=== PATIENT | female | born 1970 | race Caucasian/White ===

== ENCOUNTER → 2017-11-08 | Outpatient (CLI) | payer MEDICARE | LOC: M RAD 08:37 | DX: Z12.31 Encounter for screening mammogram for malignant neoplasm of breast (principal) | CPT/HCPCS: 77067 ==

== ENCOUNTER → 2017-11-20 | Outpatient (REF) | payer MEDICARE | LOC: M LAB REF 17:29 | DX: Z12.4 Encounter for screening for malignant neoplasm of cervix (principal) | CPT/HCPCS: G0123 ==

== ENCOUNTER → 2017-11-27 | Outpatient (CLI) | payer MEDICARE | LOC: M RAD 09:33 | DX: N92.6 Irregular menstruation, unspecified (principal) | CPT/HCPCS: 76856 ==

== ENCOUNTER 2018-11-12 16:03 | Emergency (ER) | payer MEDICARE ==
[~2018-11-12] VITALS: Ht 175.3 cm; Wt 86.2 kg
[~2018-11-12 16:03] MED LIST: IBUP600T OR
[2018-11-12] MEDS ORDERED: diazePAM 5 MG TAB PO ONE (19:00)
[2018-11-12] MEDS ORDERED: methylPREDNISolone INJ 125 MG/2 ML VIAL (J2930) IV ONE (19:00)
[2018-11-12] MEDS ORDERED: MORPHINE 4 MG/ML 1ML VIAL/SYRINGE (J2270) IV ONE (21:15)
[2018-11-12] MEDS ORDERED: PRED20TA PO (22:00)
[2018-11-12] MEDS ORDERED: VALI5TAB PO (22:00)
[2018-11-12 22:11] VITALS: BP 106/55
== END 2018-11-12 22:13 | disposition home or self-care (01) ==
LOC: M ED 16:03
DX: M54.41 Lumbago with sciatica, right side (principal); Z87.442 Personal history of urinary calculi; Z72.0 Tobacco use; Z91.02 Food additives allergy status; Z91.018 Allergy to other foods
CPT/HCPCS: 81001; 96374; 96375; 99284; J2270; J2930

== ENCOUNTER → 2018-11-18 | Outpatient (CLI) | payer MEDICARE ==
[~2018-11-18] MED LIST changes: +PRED20TA PO; +VALI5TAB PO
--- NOTE | 2018-11-18 16:20 | REP ---
LUMBAR SPINE, FIVE VIEWS: HISTORY: Back pain. There is no acute fracture. The L3-4 through L5-S1 intervertebral discs are decreased in height consistent with disc degeneration. Osteophytes are present on a L1 through L5. There is narrowing of the L4-5 and L5-S1 facet joints. There are 5 mm of grade 1 spondylolisthesis of L3 on L4. There are 4 mm of retrolisthesis of L5 on S1. IMPRESSION: Degenerative change as described above. Electronically Signed by Robin Clark MD 11/18/2018 04:23 P
--- NOTE | 2018-11-18 16:34 | REP ---
AP pelvis one-view : Mineralization and joint spaces are normal. There are no calcifications or foreign bodies. There is no fracture or dislocation. Impression: Negative AP pelvis. Right hip two views: There is no fracture or dislocation. Mineralization and joint space are normal. There are no calcifications or foreign bodies. Impression: Negative right hip. Electronically Signed by Thomas Power MD 11/18/2018 04:26 P
== END ==
LOC: M RAD 15:46
PROVIDERS: ATTEND Family Medicine
DX: M54.5 Low back pain (principal)

== ENCOUNTER 2019-06-16 19:16 | Emergency (ER) | payer MEDICARE ==
[~2019-06-16] VITALS: Ht 175.3 cm; Wt 72.7 kg
[2019-06-16] MEDS ORDERED: diphenhydrAMINE INJ 50MG/ML VIAL (J1200) As Ordered ONE (19:23)
[2019-06-16] MEDS ORDERED: dexameTHASONE 20 MG/5 ML VIAL (J1100) As Ordered ONE (19:23)
[2019-06-16] MEDS ORDERED: EPINEPHrine INJ 1 MG/ML 1ML AMP IM STA (19:25)
[2019-06-16 19:45] VITALS: BP 99/50
[2019-06-16] MEDS ORDERED: diphenhydrAMINE INJ 50MG/ML VIAL (J1200) IV STA (19:48)
[2019-06-16] MEDS ORDERED: dexameTHASONE 20 MG/5 ML VIAL (J1100) IV ONE (20:00)
[2019-06-16] MEDS ORDERED: PRED20TA PO (20:25)
== END 2019-06-16 20:38 | disposition home or self-care (01) ==
LOC: M ED 19:16
DX: R21 Rash and other nonspecific skin eruption (principal); L29.9 Pruritus, unspecified; T78.00XA Anaphylactic reaction due to unspecified food, initial encounter; X58.XXXA Exposure to other specified factors, initial encounter; Y92.89 Other specified places as the place of occurrence of the external cause; G89.29 Other chronic pain; M54.5 Low back pain; J30.89 Other allergic rhinitis; Z91.018 Allergy to other foods; F17.210 Nicotine dependence, cigarettes, uncomplicated
CPT/HCPCS: 96372; 96374; 96375; 99291; J1100; J1200

== ENCOUNTER 2020-01-31 13:37 | Emergency (ER) | payer OTHER, MEDICARE ==
[~2020-01-31] VITALS: Ht 175.3 cm; Wt 77.3 kg
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
[2020-01-31] MEDS ORDERED: PERCOCET 5MG/325MG TAB PO ONE (14:30)
[2020-01-31] MEDS ORDERED: BOOSTRIX/ADACEL VACCINE (DIPHTH/PERTUSS/ACELL/TETANUS) 0.5ML SYR IM ONE (14:30)
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
[2020-01-31] MEDS ORDERED: NORC1TAB7 PO (15:22)
[2020-01-31 15:41] VITALS: BP 108/56
== END 2020-01-31 15:40 | disposition home or self-care (01) ==
LOC: EDBD 13:37 → M ED 13:37
DX: S70.01XA Contusion of right hip, initial encounter (principal); S70.311A Abrasion, right thigh, initial encounter; V49.59XA Passenger injured in collision with other motor vehicles in traffic accident, initial encounter; Y92.410 Unspecified street and highway as the place of occurrence of the external cause; F17.210 Nicotine dependence, cigarettes, uncomplicated

== ENCOUNTER → 2020-05-22 | Outpatient (CLI) | payer MEDICARE ==
[~2020-05-22] MED LIST changes: +NORC1TAB7 PO
--- NOTE | 2020-05-22 14:39 | REP ---
INDICATION: HAND PAIN COMPARISON: None. TECHNIQUE: AP, lateral, bilateral oblique views left hand. FINDINGS: The osseous structures and joint spaces are intact and normal. There is no evidence for acute fracture or dislocation. Surrounding soft tissues are unremarkable. No subcutaneous emphysema or radiodense foreign body. IMPRESSION: . No acute fracture or dislocation. <Electronically signed by Evert Krishnamurthy > 05/22/20 [id number]
== END ==
LOC: M WUC 14:01
PROVIDERS: ATTEND Nurse Practitioner Family
DX: M79.642 Pain in left hand (principal)

== ENCOUNTER 2020-09-10 10:59 | Emergency (ER) | payer MEDICARE ==
[~2020-09-10] VITALS: Ht 175.3 cm; Wt 72.7 kg
[2020-09-10] MEDS ORDERED: METH4PACK (11:20)
[2020-09-10] MEDS ORDERED: AZIT-12 (11:20)
--- OUTSIDE RECORDS SUMMARY | 2020-09-10 11:35 | CCD | Continuity of Care Document ---
Author Author [facility] Address [address] [place] [address] Phone Care Team Providers Care Cotton Classer Aide Name Role Phone GAYLE BARNHART PCP Allergies, Adverse Reactions, Alerts No allergy information available. Medications No medication information available. Problems No problem information available. Procedures Procedure Date Performed Status CHEST 1 VIEW July 19, 2020 active Relevant Diagnostic Tests and/or Laboratory Data Laboratory Results Test Date/Time Result Interpretation Reference Range Result Co mment Performing Site White Blood Count July 19, 2020 5:10pm 8.0 4.0-1 0.0 [facility] Main Lab, [address] [place] [address] Red Blood Count July 19, 2020 5:10pm 4.31 4.00-5. 50 [facility] Main Lab, [address] [place] [address] Hemoglobin July 19, 2020 5:10pm 14.5 12.0-16.0 [facility] Main Lab, [address] [facility] [address] Hematocrit July 19, 2020 5:10pm 41.7 36.0-48.8 [facility] Lab, [address] [place] [address] Mean Corpuscular Volume July 19, 2020 5:10pm 96.8 80-96 [facility] Lab, [address] [facility] [address] Mean Corpuscular Hemoglobin July 19, 2020 5:10pm 33.6 27.0-31.0 [facility] Main Lab, 4 [facility] [address] Mean Corpuscular Hgb Concent Diff July 19, 2020 5:10pm 34.8 32.0-36.0 [facility] Main Lab, [address] [facility] [address] Red Cell Distribution Width July 19, 2020 5:10pm 13.3 10.0-14.5 [facility] Main Lab, [address] [facility] [address] Platelet Count July 19, 2020 5:10pm 281 172-450 [facility] Main Lab, [address] [place] [address] Mean Platelet Volume July 19, 2020 5:10pm 9.1 9. 0-13.0 [facility] Main Lab, 4 [facility] [address] Granulocytes % (Auto) July 19, 2020 5:10pm 59.2 5 0-80.0 [facility] Main Lab, [address] [facility] [address] Immature Granulocytes % July 19, 2020 5:10pm 0.2 0.0-0.2 [facility] Main Lab, [address] [facility] [address] Lymphocytes % July 19, 2020 5:10pm 31.0 25.0-50.0 [facility] Main Lab, [address] [facility] [address] Monocytes % July 19, 2020 5:10pm 8.0 2.0-10.0 [facility] Main Lab, 4 [facility] [address] Eosinophils % July 19, 2020 5:10pm 1.2 0-5.0 [facility] Main Lab, 4 [facility] [address] Basophils % July 19, 2020 5:10pm 0.4 0.0-2.0 [facility] Main Lab, 4 [facility] [address] Granulocytes # July 19, 2020 5:10pm 4.7 2.0-8.00 [facility] Main Lab, 4 [facility] [address] Immature Granulocytes # July 19, 2020 5:10pm 0.0 0.0-0.2 [facility] Main Lab, 4 [facility] [address] Lymphocytes # July 19, 2020 5:10pm 2.5 1.0-5.0 [facility] Main Lab, 4 [facility] [address] Monocytes # July 19, 2020 5:10pm 0.6 0.10-1.20 [facility] Main Lab, [address] [facility] [address] Eosinophils # July 19, 2020 5:10pm 0.1 0.0-0.5 [facility] Main Lab, 4 [facility] [address] Basophils # July 19, 2020 5:10pm 0.0 0.0-0.2 [facility] Main Lab, 4 [facility] [address] Prothrombin Time July 19, 2020 5:10pm 9.6 9.1-11 .6 [facility] Main Lab, [address] [facility] [address]226 INR International Normalized Ratio July 19, 2020 5:10pm 0.92 0.87-1.06 [facility] Main Lab, 4 [facility] [address]233 Partial Thromboplastin Time - Margo July 19, 2020 5:10pm 24.0 21.2-27.3 [facility] Main Lab, 4 [facility] [address] Glucose Level July 19, 2020 5:10pm 95 74-106 [facility] Main Lab, 4 [facility] [address] Blood Urea Nitrogen July 19, 2020 5:10pm 9 7-1 8 [facility] Main Lab, 4 [facility] [address]652 Creatinine July 19, 2020 5:10pm 0.8 0.6-1.0 [facility] Main Lab, [address] [facility] [address] Sodium Level July 19, 2020 5:10pm 138 136-145 [facility] Main Lab, 4 [facility] [address] Potassium Level July 19, 2020 5:10pm 4.2 3.5-5.1 [facility] Main Lab, 4 [facility] [address] Chloride Level July 19, 2020 5:10pm 100 98-107 [facility] Main Lab, [address] [facility] [address] Carbon Dioxide Level July 19, 2020 5:10pm 31 21 -32 [facility] Main Lab, [address] [facility] [address] Calcium Level July 19, 2020 5:10pm 9.5 8.5-10.1 [facility] Main Lab, [address] [facility] [address] Anion Gap July 19, 2020 5:10pm 7.0 5-12 [facility] Main Lab, 4 [facility] [address] Estimated GFR (MDRD) July 19, 2020 5:10pm 76 GFR IS CALCULATED IN mL/min/1.73m2 NORMAL FUNCTION: >90MILDLY DECREASED: 60-89MILDY TO MODERATELY DECREASED: 45-59 MODERATELY TO SEVERELY DECREASED: 30-44SEVERELY DECREASED: 15-29RENAL FAILURE: <15 [facility] Main Lab, [address] [facility] [address] Aspartate Amino Transf (AST/SGOT) July 19, 2020 5:10pm 15 15-37 [facility] Main Lab, [address] [facility] [address] Alanine Aminotransferase (ALT/SGPT) July 19, 2020 5:10pm 17 12-78 [facility] Main Lab, 4 [facility] [address] Alkaline Phosphatase July 19, 2020 5:10pm 81 46 -116 [facility] Main Lab, 4 [facility] [address] Total Bilirubin July 19, 2020 5:10pm 0.3 0.2-1.0 [facility] Main Lab, 4 [facility] [address] Total Protein July 19, 2020 5:10pm 7.2 6.4-8.2 [facility] Main Lab, 4 [facility] 289[address] Albumin July 19, 2020 5:10pm 3.7 3.4-5.0 [facility] Main Lab, 4 [facility] [address] Lipase July 19, 2020 5:10pm 129 73-393 [facility] Main Lab, 4 [facility] [address]957 Troponin I July 19, 2020 8:09pm < 0.017 0.0-0.056 [facility] Main Lab, [address] [facility] [address] Thyroid Stimulating Hormone (TSH) July 19, 2020 5:10pm 4.51 0.36-3.74 [facility] Main Lab, 4 [facility] [address]367 Magnesium Level July 19, 2020 5:10pm 1.9 1.8-2.4 [facility] Main Lab, [address] [facility] [address] Free Thyroxine July 19, 2020 5:10pm 0.95 0.76-[address] [place] [address] Main Lab, [address] [place] [address] Health Concerns No known health concerns documented Chief Complaint and Reason for Visit Reason for Visit CHEST PAIN Encounters Encounter Location(s) Arrival/Admit Date Discharge/Depart Date Provider(s) Departed Emergency [facility], [facility] July 19, 2020 4:59p m July 19, 2020 8:48pm BRITANY MERRILL @ Assessments No Assessments Information Available Functional Status No Functional Status information available Goals No Goals Information Available Immunizations No Immunization Information Available Mental Status No Mental Status Information Available Medical Equipment No Medical Equipment Information available Insurance Providers Guarantor TARAS NOVEMBER [place] Address [address] [address] Contact Info. Home Phone: Payer Policy Id Coverage Id Subscriber's Name Subscriber Id Effect heidy Date Expiration Date MEDICARE - [place] [id number] TARAS November [employer] [id number] TARAS NovemberMay 06, 2014 Social History Assigned Sex Female Vital Signs No vital signs result information available.
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
--- OUTSIDE RECORDS SUMMARY | 2020-09-10 11:36 | CCD ---
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 AgICAgICAgICAgICAgICAgICAgICAgICAgICAgICAgICAgICAgICAgICAgICAgICAgICAgICAgICAgIC AgICAgICAgICAgICAgICAgICAgICAgICAgICAgICAg CJ6QKUCvVVMrTUGqWZMlJXWlBRXuTKPsLCVqMKPoDVFnCLQxDGToKKWuSBPuSZWrHIGdKJFyIZSdEUWy HUQtSSJqACVuLVXxUQQvQMPfTFUlZKFhMNQrQJMnAUEqWAPnXRKjZNUsJL4YTYSlQODiCDGsJBMrEVXb ICAgICAgICAgICAgICAgICAgICAgICAgICAgICAgIC FaYOCxEWMbADLgYMRxWSOlCDWiUWXuVEEgDPXoXISgLPVvVLKgPBGrPORiRDWcBYAdZGUuDV9EWUUzQC AgICAgICAgICAgICAgICAgICAgICAgICAgICAgICAgICAgICAgICAgICAgICAgICAgICAgICAgICAgIC AgICAgICAgICAgICAgICAgICAgICAgICAgICAgICAg UPUuPG9NSYZxHWNwHYNtVKYsUULbBIGiGYYxOFHwDKFeFEWhYNUtBSWzBFWkVQQbUNPsUJFkKBOwRKLh BULcMQUhJXFhDFVeFPMwCOBeWEQpVNDrQVPaRNOfJTRwEWTgCBUfALWxBLLzCE2XLXIyJYXdBESpMIUg ICAgICAgICAgICAgICAgICAgICAgICAgICAgICAgIC EyMPRcSYVgTQFbQMHiHYLmSQVqXRPcBPRcLKWuCOWhQUOfMAGyRHHkJUDdUCWnMWHsNZJwGQLhNG4LRT AgICAgICAgICAgICAgICAgICAgICAgICAgICAgICAgICAgICAgICAgICAgICAgICAgICAgICAgICAgIC AgICAgICAgICAgICAgICAgICAgICAgICAgICAgICAg AIFhJDVdQX7BBA94oDPkr9H2OUNvTM3wwwt/Lf4VMZmssfBerUZxCP0YTwKiBY1zya5OBeVrCS9zhn8Q DNyNIjYcU4H0fRUuTDZbGNUOCcTpZ10sCSnvKt37DRkpGVDeBjTgQPw3Gv5APgGlG4arZMArYjN7HJWd ElI0BCYuUqHuWUxkKJ4Kd7MdgLQbYHr+Jo3DRN5so6 HkARmpMVIlBK9kio9UVWoHNgGhW0XsifQ6XYS6KXGlIt4RUXQbOYClqDVhFFPeCIOLPxKyH7VatM86TU ENCj4+TYtuofGvOznLBtC8MMKwz4GcGBl0ID1VZOCaHKm8wANxMLDuK6Pme7EjXe26WRXhZvqtAUC4fA pctrIJFFG7qs9heMIpGMMJYJJ2LEgnIv9aMXKmDETj ZzU4KCGZKT4PJPLcRAJouHQyNKRvEBTEHT8HKEliXDF5OPHzxwDsmTFmSDpxDY5ZMRMarnJkLrHfTFVD DQo+Sn3EDH6fn7VyUNwiOoAnHH8htd4WDSdIThAwT2R9tSKkJ1P3GGmaHk2IOYVvWWUqKyWpGBNDTIya IP3FJT6kclX4MB8GoGQaYJYmUUPmhSTtPMi1K57pqQ EnUMymLK7RDQZ+Geovanny+Qe3LSTHbCEGpGADuLvHsWXYYOwXeR8KhD7FMj0EfE3YwEF69cZhejmRiXLntYG 3DUK9lJAMdGFKXQM2CaOQhjQ9cyvNyHITgJUBUIbYxY65ljDSuPXRzHXWaRPIdLr4IVIHlQ6BtvvFrnB vqeiHcXSYaBPWTFK2DCKzmpqSgaHZqwCqfQC10rMvy OM4PYj5BNsIuFO1ndi9TbXUhIa4ULYUiSe0HXMGqNQZfOUVrFTN4OXSjOgHoBSwuEIQwZCAkWVW1YWVc NHCmLM5GHaMyQHZuNcD1DTdoZVNuVNDidl0JCVUiPLBsYbW2RvBmNLPmDVPiPOayEOOpQEFpJVP9DJIy RBGuNV8ISiNoCMRqRUR2FsKvCCUuDKYnsv5GCYQlFP ZmMWH4ZsKdSMAkGNUoKHqlUTPcGFD6JQB9RJSwHCAhYW4OWwAxCIAgSJHpUsFdRTMzWBNolp2ZNSOeFV YjQyMaVMYsTARfWSXtMWoxAJKcCPA5ZXE0DJFbRHJxGZ8GBmEpOQKtGWD7BBYyEKEdDDSkxb4AYUHyAF HvImU7EARgONZmQWPaEEgwSDAqRQF5YmP7MURlPFSu PP0XLfRqLQJpOTu6WXXmIAZcSVVnna8IRTOgALVeMER1IJIbOXPnDLLvXQklOHXvZFD5CvVlNOLhGVKw QI6VHnMsRVFkWFk1KHgmVIMdDQUhlv6MBPVeOWXuYBH0IUBpBKHhAIJvPZxgZTZjBXKpDcE9KQAuUZQd YW9KGsJuKGSmOyLkACqhLQEaVKFdwh3KNDWuAXPrVX F1SdVjNDCoGQSwXXheGGBnIWLqLeO2QYNmVMNiBQ3PZhVwXSNhPfYqWVFrEUPySKVawa5HFANbTZZcCc Y0ApDdLFKzKLVmBNnlGEQoSAIxPUO8SXIuNCOzKY2BNqMrDMBzYnT8JWccTMFyRRQogw5QyCBbtRorce 2ZITaISt9GrLmtRPF9JFqbDg4amEKbHrBmPZUUBl0S cwTyHQVlGOXLOGcbHMHfTDKjGCLaZWHnHNRqEgouMLuqISCaDoBaD3TtLlOlJtO2JlX1YsU1TjGdUdOd EWQ4TCT9TYY9R2ZgFuNrE6YwRESaIGy+QB2qLXj+Wz6Tz7HzoyK7dqKfVRzwMyn3Fr1LSLELM2LFGc== ID Date Data Source [id number] 01/17/2020 12:00:00 AM EDT [facility] Name Value Range Interpretation Code Description Data Minda rce(s) Supporting Document(s) SARS coronavirus 2 RNA [Presence] in Res piratory specimen by DANIEL with probe detection [facility] This lab was ordered by Courtney Jorge and reported by [place] [employer]. Procedure Social History Code Duration Value Status Description Data Source(s ) Alcohol intake 06/25/2020 12:00:00 AM EST Current drinker of al cohol (finding) completed Current drinker of alcohol (finding) [facility] Tobacco use and exposure 06/25/2020 12:00:00 AM EST Never used co mpleted Never used [facility] Cigarettes smoked current (pack per day) - Reported 06/25/20 12:00:00 AM EST UNK completed [facility] Smoking 06/25/2020 12:00:00 AM EST Current every day smoker co mpleted Current every day smoker [facility] Alcohol intake 05/31/2020 12:00:00 AM EDT Current drinker of al cohol (finding) completed Current drinker of alcohol (finding) [facility] Alcohol intake 05/13/2020 12:00:00 AM EDT Current drinker of al cohol (finding) completed Current drinker of alcohol (finding) [facility] Alcohol intake 03/18/2020 12:00:00 AM EDT Current drinker of al cohol (finding) completed Current drinker of alcohol (finding) [facility] Alcohol intake 02/26/2020 12:00:00 AM EDT Current drinker of al cohol (finding) completed Current drinker of alcohol (finding) [facility] Cigarettes smoked current (pack per day) - Reported 02/26/20 12:00:00 AM EDT UNK completed [facility] Smoking 02/26/2020 12:00:00 AM EDT Current every day smoker co mpleted Current every day smoker [facility] Alcohol intake 02/05/2020 12:00:00 AM EDT Current drinker of al cohol (finding) completed Current drinker of alcohol (finding) [facility] Cigarettes smoked current (pack per day) - Reported 02/05/20 12:00:00 AM EDT UNK completed [facility] Smoking 02/05/2020 12:00:00 AM EDT Current every day smoker co mpleted Current every day smoker [facility] Vital Signs ID Date Data Source UNK Name Value Range Interpretation Code Description Data Source(s) Body mass index (BMI) [Ratio] 27.5 kg/m2 27.5 k g/m2 [facility] ([facility]) Body weight 186.00 [lb_av] 186.00 [lb_av] [facility] T ([facility]) Body height 69 [in_i] 69 [in_i] [facility] ([facility]) 5'9" Body temperature 97.5 [degF] 97.5 [degF] [facility] ([facility]) Body mass index (BMI) [Ratio] 25.8 kg/m2 25.8 k g/m2 [facility] ([facility]) Body height 69 [in_i] 69 [in_i] [facility] ([facility]) 5'9" Body weight 175.00 [lb_av] 175.00 [lb_av] [facility] T ([facility]) Body temperature 98.6 [degF] 98.6 [degF] [facility] ([facility]) Oxygen saturation in Arterial blood by Pulse oximetry 98 % 98 % [facility] ([facility]) Respiratory rate 15 /min 15 /min [facility] ( [facility]) Heart rate 88 /min 88 /min [facility] ([facility], [facility]) Diastolic blood pressure 72 mm[Hg] 72 mm[Hg] [facility] ([facility], [facility]) Systolic blood pressure 115 mm[Hg] 115 mm[Hg] [facility] Body mass index (BMI) [Ratio] 25.1 kg/m2 25.1 k g/m2 [facility] ([facility], [facility]) Body height 69 [in_i] 69 [in_i] [facility] ([facility], [facility]) 5'9" Body weight 170.00 [lb_av] 170.00 [lb_av] [facility] T ([facility], [facility]) Body temperature 98.2 [degF] 98.2 [degF] [facility] ([facility], [facility]) Oxygen saturation in Arterial blood by Pulse oximetry 98 % 98 % [facility] Respiratory rate 18 /min 18 /min [facility] ( [facility], [facility]) Heart rate 69 /min 69 /min [facility]) Diastolic blood pressure 74 mm[Hg] 74 mm[Hg] [facility] ([facility], [facility]) Systolic blood pressure 117 mm[Hg] 117 mm[Hg] [facility] ID Date Data Source [id number] 08/27/2020 03:51:20 PM [facility] Value Range Interpretation Code Description Data Source(s) WEIGHT RECORDED 190.4 lb 190.4 lb [facility] Body height Measured 70 in 70 in [facility] ID Date Data Source [id number] 06/02/2020 01:23:53 PM [facility] Value Range Interpretation Code Description Data Source(s) WEIGHT RECORDED 188 lb 188 lb [facility] Body height Measured 69 in 69 in [facility] ID Date Data Source [id number] 06/04/2020 10:41:07 AM [facility] Value Range Interpretation Code Description Data Source(s) WEIGHT RECORDED 175 lb 175 lb [facility] Body height Measured 69 in 69 in [facility] ID Date Data Source [id number] 02/05/2020 12:44:08 PM [facility] Name Value Range Interpretation Code Description Data Source(s) WEIGHT RECORDED 170 lb 170 lb [facility] Body height Measured 69 in 69 in [facility] Patient Treatment Plan of Care Planned Activity Planned Date Details Description Data Source (s) Ergocalciferol [id number] UNT Oral Capsule 11/21/2017 12:00:00 AM [facility]
[2020-09-10] MEDS ORDERED: NS 1,450 ML IV ONE (11:45)
[2020-09-10] MEDS ORDERED: dexameTHASONE 20MG/5ML VIAL (J1100 PER 1MG) IV ONE (11:45)
[2020-09-10] MEDS ORDERED: FAMOTIDINE INJ 20MG/2ML VIAL (S0028 PER 1) IVP ONE (11:45)
--- NOTE | 2020-09-10 12:41 | REP ---
INDICATION: SOB allergic rxn. COMPARISON: Comparison chest x-ray November 01, 2008. TECHNIQUE: Two views.. FINDINGS: The lungs are well inflated and free of infiltrate. The pleural angles are sharp. The heart size is normal. Pulmonary vasculature is not increased. No significant bony abnormality is seen. Monitoring electrodes are seen. IMPRESSION: Negative chest x-ray. <Electronically signed by Jose Maria Mccarthy > 09/10/20 [id number]
[2020-09-10 12:59] LABS: BASO # 0.1 10^3/uL (0.0-0.2); BASO % 0.2 % (0.0-1.0); HEMOGLOBIN 14.6 g/dl (12.0-15.5); LYMPH # 1.3 10^3/uL (1.5-5.0); LYMPH % 6.3 % (24.0-44.0); MEAN CORPUSCULAR HEMOGLOBIN 33.2 pg (27.0-33.0); MEAN CORPUSCULAR HGB CONC 33.2 g/dl (32.0-36.5); MONO # 1.1 10^3/uL (0.0-0.8); NEUTROPHILS # 18.5 10^3/uL (1.5-8.5); NEUTROPHILS % 87.6 % (36.0-66.0); PLATELET COUNT, AUTOMATED 343 10^3/uL (150-450)
[2020-09-10 13:00] LABS: WHITE BLOOD COUNT 21.1 10^3/uL (4.0-10.0)
[2020-09-10 13:23] LABS: BLOOD UREA NITROGEN 17 MG/DL (7-18); CALCIUM LEVEL 8.6 MG/DL (8.5-10.1); CARBON DIOXIDE LEVEL 30 MEQ/L (21-32); CHLORIDE LEVEL 104 MEQ/L (98-107); CK-MB VALUE MASS 1.1 NG/ML (<3.6); CPK CREATINE PHOSPHOKINASE 49 U/L (26-192); CREATININE FOR GFR 0.96 MG/DL (0.55-1.30); GLOMERULAR FILTRATION RATE > 60.0 (>51); GLUCOSE, FASTING 188 MG/DL (70-100); MB/CK RELATIVE INDEX 2.24 (< OR =4); POTASSIUM SERUM 4.1 MEQ/L (3.5-5.1); SODIUM LEVEL 139 MEQ/L (136-145); TROPONIN I < 0.02 NG/ML (< 0.10)
[2020-09-10 15:00] VITALS: BP 124/60
--- NOTE | 2020-09-10 20:07 | ECGEPIP ---
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
== END 2020-09-10 15:00 | disposition home or self-care (01) ==
LOC: EDBD 10:59 → EDSEX 10:59 → M ED 10:59
DX: D72.829 Elevated white blood cell count, unspecified (principal); L50.9 Urticaria, unspecified; T78.40XA Allergy, unspecified, initial encounter; X58.XXXA Exposure to other specified factors, initial encounter; Y92.89 Other specified places as the place of occurrence of the external cause; Z91.018 Allergy to other foods; F17.210 Nicotine dependence, cigarettes, uncomplicated
CPT/HCPCS: 71046; 80048; 82550; 82553; 84484; 85025; 93005; 93041; 94760; 96361; 96374; 96375; 99285; J1100

== ENCOUNTER → 2020-11-10 | Outpatient (CLI) | payer MEDICARE ==
[~2020-11-10] MED LIST changes: +AZIT-12; +METH4PACK
--- NOTE | 2020-11-10 12:57 | REPPI ---
INDICATION: COPD. COMPARISON: PA and lateral chest dated 09/10/2020. TECHNIQUE: Upright PA and lateral chest. FINDINGS: The lung oates are clear. Cardiac size is normal. The trinity, mediastinum and skeletal structures are unremarkable. IMPRESSION: Essentially negative PA and lateral chest There is no interval change. <Electronically signed by Thomas Power > 11/10/20 [id number]
[2020-11-10 14:49] LABS: HEMATOCRIT 42.6 % (36.0-47.0); HEMOGLOBIN 14.2 g/dl (12.0-15.5); MEAN CORPUSCULAR HEMOGLOBIN 33.3 pg (27.0-33.0); MEAN CORPUSCULAR HGB CONC 33.3 g/dl (32.0-36.5); PLATELET COUNT, AUTOMATED 370 10^3/uL (150-450); RED BLOOD COUNT 4.26 10^6/uL (4.00-5.40); WHITE BLOOD COUNT 7.5 10^3/uL (4.0-10.0)
[2020-11-10 15:27] LABS: HEMOGLOBIN A1c 5.7 %
[2020-11-10 15:30] LABS: ALBUMIN 3.5 GM/DL (3.2-5.2); ALT/SGPT 13 U/L (12-78); BILIRUBIN,TOTAL 0.2 MG/DL (0.2-1.0); BLOOD UREA NITROGEN 12 MG/DL (7-18); CALCIUM LEVEL 9.1 MG/DL (8.5-10.1); CARBON DIOXIDE LEVEL 31 MEQ/L (21-32); CHLORIDE LEVEL 109 MEQ/L (98-107); CHOLESTEROL LEVEL 245 MG/DL (<200); CHOLESTEROL RISK RATIO 5.326 (<5); CREATININE FOR GFR 0.73 MG/DL (0.55-1.30); ESTRADIOL 95.4 PG/ML; FOLLICLE STIMULATING HORMONE 43.2 mIU/mL; GLOMERULAR FILTRATION RATE > 60.0 (>51); GLUCOSE, FASTING 90 MG/DL (70-100); HDL CHOLESTEROL 46 MG/DL (>40); LDL CHOLESTEROL 179 MG/DL (<100); LUTEINIZING HORMONE 40.9 mIU/mL; NON-HDL-C 199 MG/DL; POTASSIUM SERUM 4.7 MEQ/L (3.5-5.1); SODIUM LEVEL 142 MEQ/L (136-145); TOTAL PROTEIN 6.4 GM/DL (6.4-8.2); TRIGLYCERIDES LEVEL 100 MG/DL (<150)
== END ==
LOC: M PLAIMG 10:23
PROVIDERS: ATTEND Family Medicine
DX: J44.9 Chronic obstructive pulmonary disease, unspecified (principal); R53.83 Other fatigue; E03.9 Hypothyroidism, unspecified; Z79.899 Other long term (current) drug therapy

== ENCOUNTER → 2020-11-10 | Outpatient (CLI) | payer MEDICARE ==
--- NOTE | 2020-11-10 17:12 | ECGEPIP ---
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
== END ==
LOC: M EKG 11:33
PROVIDERS: ATTEND Family Medicine
DX: J44.9 Chronic obstructive pulmonary disease, unspecified (principal); R53.83 Other fatigue; E03.9 Hypothyroidism, unspecified

== ENCOUNTER 2020-11-24 19:44 | Emergency (ER) | payer OTHER, MEDICARE ==
[~2020-11-24] VITALS: Ht 177.8 cm; Wt 81.8 kg
[2020-11-24] MEDS ORDERED: GOOD81CH2 PO (20:15)
[2020-11-25] MEDS ORDERED: methocarbamoL 750 MG TAB PO ONE (00:20)
[2020-11-25] MEDS ORDERED: KETOROLAC 60MG 2ML VIAL IM ONE (00:20)
[2020-11-25] MEDS ORDERED: LIDOCAINE 5% (LIDODERM) PATCH TD ONE (00:20)
[2020-11-25] MEDS ORDERED: METH-1165 PO (01:39)
[2020-11-25 02:22] VITALS: BP 117/77
[2020-11-25] MEDS ORDERED: **NOTE PATIENT COMMENT** MISC XX SCH (21:00)
== END 2020-11-25 02:26 | disposition home or self-care (01) ==
LOC: M ED 19:44
DX: M62.830 Muscle spasm of back (principal); G89.29 Other chronic pain; Z87.442 Personal history of urinary calculi; Z79.82 Long term (current) use of aspirin; Z91.018 Allergy to other foods; F17.210 Nicotine dependence, cigarettes, uncomplicated
CPT/HCPCS: 96372; 99283; J1885

== ENCOUNTER → 2020-12-06 | Outpatient (CLI) | payer SELFPAY ==
[~2020-12-06] MED LIST changes: +GOOD81CH2 PO; +METH-1165 PO
== END ==
LOC: M LABSMTC 09:52
PROVIDERS: ATTEND Pediatrics
DX: Z20.822 Contact with and (suspected) exposure to COVID-19 (principal)

== ENCOUNTER → 2020-12-16 | Outpatient (REF) | payer MEDICARE, OTHER | LOC: M SFHCWAGY 17:06 | PROVIDERS: ATTEND Nurse Practitioner Women's Health | DX: Z12.4 Encounter for screening for malignant neoplasm of cervix (principal); R87.618 Other abnormal cytological findings on specimens from cervix uteri | CPT/HCPCS: 87624; G0123; G0463 ==

== ENCOUNTER → 2021-01-06 | Outpatient (CLI) | payer MEDICARE ==
--- NOTE | 2021-01-06 11:38 | REP ---
INDICATION: N63.20 LT BREAST LUMP. The patient could not feel the palpable abnormality today that was felt previously. COMPARISON: Multiple TECHNIQUE: Digital mammography was obtained bilaterally using CC and MLO projections in both 2D and 3D modalities and compared to the prior exams. In addition, diagnostic digital magnified spot compression views of the left breast were obtained upper outer quadrant over the region where the patient's healthcare provider previously palpated a small marble-sized nodule. Diagnostic ultrasonography of the whole upper outer quadrant was also obtained. FINDINGS: The breasts are unchanged in size and shape. There are no masses. There is no internal architectural distortion. There are no suspicious calcifications. There is no skin thickening or nipple retraction. Scattered dense heterogenous fibroglandular elements are again seen in a stable appearing pattern. Diagnostic digital magnified spot compression views left breast region of interest show no abnormalities. Diagnostic left breast ultrasonography over the region of interest shows no cystic or solid masses. The Volpara volumetric breast density pattern is b. IMPRESSION: BIRADS/ACR category 2 negative mammogram. There is no mammographic evidence or ultrasonographic evidence of malignant alteration of either breast. A negative mammogram and a negative ultrasound examination should never curtail biopsy of a clinically palpable mass or clinically suspicious area the breast. Surgical consultation and or breast MRI should be considered if clinically relevant. This patient's Tyrer-Cuzick lifetime breast cancer risk assessment score is 13.4%. This mammogram was interpreted with the aid of an FDA-approved computer-aided detection system. The patient states she had a clinical breast exam in December 2020. The patient letter being requested is M2. RECOMMENDATION: Repeat screening mammography recommended 1 year (for women over 40). With additional possible intervention as described above. <Electronically signed by Zeus Rico > 01/06/21 [id number]
== END ==
LOC: M WHC 07:53
PROVIDERS: ATTEND Nurse Practitioner Women's Health
DX: N63.21 Unspecified lump in the left breast, upper outer quadrant (principal)
CPT/HCPCS: 76642; 77066; G0279

== ENCOUNTER → 2021-01-10 | Outpatient (CLI) | payer MEDICARE ==
--- NOTE | 2021-01-10 15:16 | REP ---
INDICATION: N93.9 AUB. COMPARISON: 11/27/2017. TECHNIQUE: Transabdominal and transvaginal scanning performed. FINDINGS: Uterine dimensions are 8.5 x 4.3 x 5.2 cm. Endometrial echo is 9 mm mm in AP dimension and centrally placed. There are a few tiny echogenic foci in the endometrium which may represent calcifications. The bladder measures 13.7 x 7.8 x 9.9cm. The right ovary has dimensions of 2.0 x 1.7 x 2.0 cm. It's Doppler flow is normal with a resistive index of 0.63. The left ovary is not visualized. There is no adnexal mass identified. No free fluid is seen in the cul-de-sac. IMPRESSION: Endometrial thickness 9 mm, with a few tiny echogenic foci in the endometrium possibly representing calcifications. Normal right ovary. Left ovary could not be visualized. No adnexal mass or free fluid. <Electronically signed by Thomas Scott > 01/10/21 [id number]
== END ==
LOC: M WHC 13:01
PROVIDERS: ATTEND Nurse Practitioner Women's Health
DX: N93.9 Abnormal uterine and vaginal bleeding, unspecified (principal)

== ENCOUNTER → 2021-01-17 | Outpatient (REF) | payer MEDICARE, OTHER | LOC: M SFHCWAGY 13:00 | PROVIDERS: ATTEND Nurse Practitioner Women's Health | DX: N93.9 Abnormal uterine and vaginal bleeding, unspecified (principal) ==

== ENCOUNTER → 2022-10-31 | Outpatient (CLI) | payer MEDICARE ==
[~2022-10-31] MED LIST changes: -GOOD81CH2 PO; +RA A81CH3 PO
== END ==
LOC: M WUC 12:25
PROVIDERS: ATTEND Family Medicine
DX: J44.9 Chronic obstructive pulmonary disease, unspecified (principal)

== ENCOUNTER → 2023-03-09 | Outpatient (REF) | payer MEDICARE ==
[~2023-03-09] MED LIST changes: +ASPI-663 PO; -RA A81CH3 PO
== END ==
LOC: M SFHCWAGY 17:00
PROVIDERS: ATTEND Nurse Practitioner Family
DX: Z12.4 Encounter for screening for malignant neoplasm of cervix (principal)
CPT/HCPCS: 87624; G0123

== ENCOUNTER → 2023-03-09 | Outpatient (CLI) | payer MEDICARE | LOC: M WHC 11:26 | PROVIDERS: ATTEND Nurse Practitioner Family | DX: Z12.31 Encounter for screening mammogram for malignant neoplasm of breast (principal) ==

== ENCOUNTER → 2023-09-13 | Outpatient (CLI) | payer MEDICARE | LOC: M SLEEP HO 12:25 | PROVIDERS: ATTEND Nurse Practitioner Family | DX: G47.30 Sleep apnea, unspecified (principal); R40.0 Somnolence ==

== ENCOUNTER → 2024-10-30 | Outpatient (CLI) | payer MEDICARE | LOC: M WUC 10:35 | PROVIDERS: ATTEND Family Medicine | DX: J44.9 Chronic obstructive pulmonary disease, unspecified (principal); J18.9 Pneumonia, unspecified organism ==

== ENCOUNTER → 2025-05-07 | Outpatient (CLI) | payer MEDICARE | LOC: M WHC 14:54 | PROVIDERS: ATTEND Student in an Organized Health Care Education/Training Program | DX: Z12.31 Encounter for screening mammogram for malignant neoplasm of breast (principal); R92.313 Mammographic fatty tissue density, bilateral breasts ==

== ENCOUNTER → 2025-06-12 | Outpatient (CLI) | payer MEDICARE | LOC: M RAD 13:15 | PROVIDERS: ATTEND Student in an Organized Health Care Education/Training Program | DX: R91.8 Other nonspecific abnormal finding of lung field (principal); J98.11 Atelectasis; F17.219 Nicotine dependence, cigarettes, with unspecified nicotine-induced disorders ==

== ENCOUNTER → 2025-06-14 | Outpatient (REF) | payer MEDICARE | LOC: M LAB REF 17:21 | DX: B34.9 Viral infection, unspecified (principal) ==